=== PATIENT | female | born 1960 | race American Indian/Alaskan Native ===

== ENCOUNTER 2016-10-04 07:42 | Day surgery (SDC) | payer BC ==
[2016-10-04 08:55] LABS: Basophils % (Auto) 0.3 % (0.0-1.8); Hematocrit 41.4 % (30.3-42.9); Hemoglobin 12.9 gm/dl (10.1-14.3); Mean Corpuscular HGB Conc 31 % (30-34); Mean Corpuscular Volume 80 fl (79-97); Platelet Count 216 K/mm3 (140-440); Red Blood Count 5.17 M/mm3 (3.65-5.03); Red Cell Distribution Width 14.7 % (13.2-15.2); White Blood Count 5.6 K/mm3 (4.5-11.0)
--- NOTE | 2016-10-04 09:04 | Anesthesia Consultation ---
Anesthesia Consult and Med Hx Date of service: 10/04/16 - Airway Anesthetic Teeth Evaluation: Good ROM Head & Neck: Adequate Mental/Hyoid Distance: Adequate Mallampati Class: Class III Intubation Access Assessment: Possibly Difficult - Pre-Operative Health Status ASA Pre-Surgery Classification: ASA3 Proposed Anesthetic Plan: MAC - Pulmonary Hx Asthma: Yes (uses inhaler 2/month) Hx Sleep Apnea: Yes (undiagnosed) - Cardiovascular System Hx Hypertension: Yes Hx Coronary Artery Disease: No (high cholesterol) - Central Nervous System Hx Seizures: Yes (last seizure 3 weeks ago) Hx Psychiatric Problems: Yes (extreme claustrophobia) - Other Systems Hx Cancer: Yes (breast CA, mastectomy 2013) Hx Obesity: Yes (BMI 37.8)
--- NOTE | 2016-10-04 09:04 | Anesthesia Day of Surgery ---
Anesthesia Day of Surgery - Day of Surgery Patient Examined: Yes Patient H&P Reviewed: Yes Patient is NPO: Yes
[2016-10-04] MEDS ORDERED: DILAUDID ONE (09:05)
[2016-10-04] MEDS ORDERED: DIPRIVAN 10 MG/ML IV ONE ×3 (09:05→09:06)
[2016-10-04] MEDS ORDERED: VERSED ONE (09:05)
[2016-10-04] MEDS ORDERED: XYLOCAINE MPF 2% ONE (09:06)
[2016-10-04 09:07] LABS: INR 0.91 (0.87-1.13)
[2016-10-04 09:08] LABS: Partial Thromboplastin Time 28.6 Sec. (24.2-36.6)
[2016-10-04] MEDS ORDERED: NACL 0.9% 1000 ML 1,000 ML ONE (09:11)
[2016-10-04 09:13] LABS: Anion Gap 17 mmol/L; BUN/Creatinine Ratio 17.14; Blood Urea Nitrogen 12 mg/dL (7-17); Calcium 9.5 mg/dL (8.4-10.2); Carbon Dioxide 25 mmol/L (22-30); Chloride 100.5 mmol/L (98-107); Glucose 134 mg/dL (65-100); Mean Corpuscular Hemoglobin 25 pg (28-32); Potassium 4.2 mmol/L (3.6-5.0); Sodium 138 mmol/L (137-145)
[2016-10-04] MEDS ORDERED: NACL 0.9% 1000 ML 1,000 ML IV SCH (10:00)
--- NOTE | 2016-10-04 10:37 | Magnetic Resonance Report ---
MRI BRAIN WITH/WITHOUT CONTRAST: History: Convulsions. Comparison: None at this facility. Technique: Multiple T1 and T2 weighted images were obtained in multiple planes. Axial diffusion and gradient imaging was performed. Post contrast T1 images in two planes were obtained following IV gadolinium. Findings: The brain parenchyma signal intensity and its ramsey-white interface are normal on all sequences. No abnormal parenchymal signal. No diffusion restriction, hemorrhage, mass effect or extra-axial fluid collection. Ventricular size is normal and symmetric. The basal cisterns are clear. The brainstem and cerebellar hemispheres are within normal limits. The fourth ventricle is midline. The paranasal sinuses and mastoid air cells are well aerated. Normal flow voids are identified in the appropriate vessels at the [place] of [place]. No abnormal enhancement is identified following IV gadolinium. Impression: 1. Unremarkable MRI brain with and without contrast.
[2016-10-04 12:17] VITALS: BP 113/62
== END 2016-10-04 12:55 | disposition home or self-care (01) ==
LOC: OPU 07:42 → EDSTATUS 09:00 → OPU 12:55
PROVIDERS: ATTEND Psychiatry & Neurology Neurology
DX: R56.9 Unspecified convulsions (principal); J45.909 Unspecified asthma, uncomplicated; I10 Essential (primary) hypertension; E78.00 Pure hypercholesterolemia, unspecified; F40.240 Claustrophobia; E66.9 Obesity, unspecified; Z68.37 Body mass index [BMI] 37.0-37.9, adult; Z85.3 Personal history of malignant neoplasm of breast; Z90.10 Acquired absence of unspecified breast and nipple; Z91.018 Allergy to other foods; Z79.899 Other long term (current) drug therapy
CPT/HCPCS: 36415; 70553; 80048; 85025; 85610; 85730; A9577; J1170; J2250; J2704; J7030

== ENCOUNTER 2017-01-04 13:38 | Outpatient (CLI) | payer BC ==
--- NOTE | 2017-01-09 08:51 | Mammography Report ---
LEFT DIGITAL SCREENING MAMMOGRAM with CAD: 01/04/17 13:38:00 CLINICAL: Routine screening. Breast cancer survivor status post right mastectomy. COMPARISON:08/11/15 [facility] FINDINGS: The breast is mostly fatty.Asymmetry in the upper breast on the MLO view requires additional imaging. No architectural distortion or suspicious calcifications. An intraparenchymal lymph node in the upper outer breast is stable. IMPRESSION: Asymmetry requiring additional imaging. BI-RADS CATEGORY: 0--Needs Additional Imaging RECOMMENDATION: Recall for spot magnification MLO and CC views and left breast ultrasound if needed. ACR BI-RADS MAMMOGRAPHIC CODES: 0 = Needs additional imaging evaluation; 1 = Negative; 2 = Benign; 3 = Probably benign; 4 = Suspicious; 5 = Malignant; 6 = Known biopsy-proven malignancy COMMENT: 1. Dense breast tissue, i.e., adenosis, fibrocystic changes, etc., may obscure an underlying neoplasm. 2. Approximately 10% of cancers are not detected with mammography. 3. A negative mammography report should not delay biopsy if a clinically suspicious mass is present. COMMENT: Patient follow-up letters are generated via our [employer] application.
== END 2017-01-04 13:39 | disposition home or self-care (01) ==
LOC: SPVWC 13:38
PROVIDERS: ATTEND Surgery
DX: Z12.31 Encounter for screening mammogram for malignant neoplasm of breast (principal); Z85.3 Personal history of malignant neoplasm of breast
CPT/HCPCS: G0202-52

== ENCOUNTER 2017-01-10 14:03 | Outpatient (CLI) | payer BC ==
--- NOTE | 2017-01-10 15:43 | Ultrasound Report ---
LEFT DIGITAL DIAGNOSTIC MAMMOGRAM : 01/10/17 14:03:00 CLINICAL: Recalled for asymmetry. COMPARISON:01/04/17 screening FINDINGS: Spot magnification MLO and CC views were performed and demonstrated persistent low-density irregular focal asymmetry in the upper inner quadrant. It measures approximately 18 mm maximum on the MLO spot. Ultrasound of the inner left breast was performed from 6 o'clock to 12 o'clock. No mass, cyst or shadowing to correlate with the mammographic density. An irregular cyst at 9 o'clock 2 cm from the nipple measures 6 x 6 x 4 mm but it does not correlate with the mammographic density. IMPRESSION: A probably benign low density mammographic asymmetry with no ultrasound correlate. BI-RADS CATEGORY: 3 - - Probably Benign RECOMMENDATION: Six month followup left mammogram and ultrasound if needed. ACR BI-RADS MAMMOGRAPHIC CODES: 0 = Needs additional imaging evaluation; 1 = Negative; 2 = Benign; 3 = Probably benign; 4 = Suspicious; 5 = Malignant; 6 = Known biopsy-proven malignancy COMMENT: 1. Dense breast tissue, i.e., adenosis, fibrocystic changes, etc., may obscure an underlying neoplasm. 2. Approximately 10% of cancers are not detected with mammography. 3. A negative mammography report should not delay biopsy if a clinically suspicious mass is present. COMMENT: Patient follow-up letters are generated via our [employer] application.
== END 2017-01-10 14:04 | disposition home or self-care (01) ==
LOC: SPVWC 14:03
PROVIDERS: ATTEND Surgery
DX: N60.02 Solitary cyst of left breast (principal); N64.89 Other specified disorders of breast; I10 Essential (primary) hypertension; E78.00 Pure hypercholesterolemia, unspecified; J45.909 Unspecified asthma, uncomplicated; I25.10 Atherosclerotic heart disease of native coronary artery without angina pectoris
CPT/HCPCS: 76642; G0206

== ENCOUNTER 2017-06-16 13:45 | Outpatient (CLI) | payer BC ==
--- NOTE | 2017-06-16 15:43 | Mammography Report ---
LEFT DIGITAL DIAGNOSTIC MAMMOGRAM with CAD: 06/16/17 13:45:00 CLINICAL: Follow-up asymmetries. COMPARISON:01/10/17 FINDINGS: Routine views plus spot magnification views were performed. A less prominent low density in her asymmetry on the CC views. A persistent upper oval slightly lobular asymmetry on MLO views. Ultrasound of the upper outer left breast was performed and demonstrated a benign cyst at 2 o'clock 7 cm from the nipple which appears to correlate with the mammographic asymmetry. It measures 7 x 3 x 6 mm. A benign cyst at 1 o'clock 7 cm from the nipple measures 5 x 2 x 3 mm and correlates with a second mammographic density. Ultrasound of the left axilla and demonstrates 2 lymph nodes with central fat a benign morphology measuring 1.1 x 0.5x 1.1 cm and 1.4 x 0.6 x 1.4 cm. IMPRESSION: Benign cysts. Recommend return to routine mammographic screening. BI-RADS CATEGORY: 2 -- Benign ACR BI-RADS MAMMOGRAPHIC CODES: 0 = Needs additional imaging evaluation; 1 = Negative; 2 = Benign; 3 = Probably benign; 4 = Suspicious; 5 = Malignant; 6 = Known biopsy-proven malignancy COMMENT: 1. Dense breast tissue, i.e., adenosis, fibrocystic changes, etc., may obscure an underlying neoplasm. 2. Approximately 10% of cancers are not detected with mammography. 3. A negative mammography report should not delay biopsy if a clinically suspicious mass is present. COMMENT: Patient follow-up letters are generated by our [employer] application.
== END 2017-06-16 13:46 | disposition home or self-care (01) ==
LOC: SPVWC 13:45
PROVIDERS: ATTEND Surgery
DX: N60.02 Solitary cyst of left breast (principal); Z85.3 Personal history of malignant neoplasm of breast

== ENCOUNTER 2018-09-11 14:30 | Outpatient (CLI) | payer BC ==
--- NOTE | 2018-09-11 15:02 | Mammography Report ---
LEFT DIGITAL SCREENING MAMMOGRAM with CAD: 09/11/18 14:30:00 CLINICAL: Routine screening. Breast cancer survivor status post mastectomy. COMPARISON:06/16/17 FINDINGS: The breast is mostly fatty with a few scattered fibroglandular densities.No mass, architectural distortion or suspicious calcifications. IMPRESSION: No mammographic evidence of malignancy. BI-RADS CATEGORY: 1 - - Negative RECOMMENDATION: Routine screening in one year. ACR BI-RADS MAMMOGRAPHIC CODES: 0 = Needs additional imaging evaluation; 1 = Negative; 2 = Benign; 3 = Probably benign; 4 = Suspicious; 5 = Malignant; 6 = Known biopsy-proven malignancy COMMENT: 1. Dense breast tissue, i.e., adenosis, fibrocystic changes, etc., may obscure an underlying neoplasm. 2. Approximately 10% of cancers are not detected with mammography. 3. A negative mammography report should not delay biopsy if a clinically suspicious mass is present. COMMENT: Patient follow-up letters are generated via our [employer] application.
== END 2018-09-11 14:31 | disposition home or self-care (01) ==
LOC: SPVWC 14:30
PROVIDERS: ATTEND Surgery
DX: Z12.31 Encounter for screening mammogram for malignant neoplasm of breast (principal); E78.00 Pure hypercholesterolemia, unspecified; E78.5 Hyperlipidemia, unspecified; J45.909 Unspecified asthma, uncomplicated; K21.9 Gastro-esophageal reflux disease without esophagitis; Z90.710 Acquired absence of both cervix and uterus; Z90.89 Acquired absence of other organs